=== PATIENT | male | born 1990 | race Caucasian/White ===

== ENCOUNTER 2017-06-29 22:34 | Emergency (ER) | payer BC, OTHER ==
[~2017-06-29] VITALS: Ht 177.8 cm; Wt 79.8 kg
[~2017-06-29 22:34] MED LIST: ZYRUNK
[2017-06-29 22:39] VITALS: TEMP 36.5; Ht 177.8 cm; Wt 79.8 kg
[2017-06-29] MEDS ORDERED: PARO10TA PO (22:59)
[2017-06-29] MEDS ORDERED: LEVO-371 PO (22:59)
[2017-06-29] MEDS ORDERED: RANITIDINE HCL 50 MG/100 ML D5W IV STA (23:16)
[2017-06-29] MEDS ORDERED: ALUMINUM/MAGNESIUM SUSP 30 ML UDC PO STA (23:16)
[2017-06-29] MEDS ORDERED: LIDOCAINE HCL 2% VISC SOLN 20 ML UDC PO STA (23:16)
[2017-06-29 23:48] LABS: HEMATOCRIT 41.9 % (42-52); MEAN CELL VOLUME 84.8 fL (80-100); MEAN CORPUSCULAR HEMOGLOBIN 29.8 pg (25-34); MEAN CORPUSCULAR HGB CONC 35.1 g/dl (32-36); MEAN PLATELET VOLUME 9.8 fL (7.4-10.4); PLATELET COUNT 232 K/uL (130-400); RED BLOOD COUNT 4.94 M/uL (4.7-6.1); WHITE BLOOD COUNT 9.37 K/uL (4.8-10.8)
[2017-06-30 00:05] LABS: ALT/SGPT 26 U/L (12-78); BLOOD UREA NITROGEN 18 mg/dl (7-18); BUN/CREATININE RATIO 22.1 (10-20); CALCIUM 9.3 mg/dl (8.5-10.1); CARBON DIOXIDE 27 mmol/L (21-32); CHLORIDE 106 mmol/L (98-107); CREATININE 0.81 mg/dl (0.60-1.40); GLUCOSE 107 mg/dl (70-99); POTASSIUM 3.6 mmol/L (3.5-5.1); SODIUM 138 mmol/L (136-145)
[2017-06-30 00:10] LABS: ALKALINE PHOSPHATASE 62 U/L (45-117); AST/SGOT 15 U/L (15-37)
[2017-06-30] MEDS ORDERED: ALUMINUM/MAGNESIUM SUSP 30 ML UDC PO STA (00:42)
[2017-06-30] MEDS ORDERED: PANTOprazole SOD 40 MG TAB PO STA (00:42)
[2017-06-30] MEDS ORDERED: LIDOCAINE HCL 2% VISC SOLN 20 ML UDC PO STA (00:42)
[2017-06-30] MEDS ORDERED: RANI150T3 PO (01:04)
--- NOTE | 2017-06-30 01:22 | EMERGENCY ROOM VISIT NOTE ---
History Report prepared by Lucille: Tacho Ruiz Under the Supervision of: Dr. Jayne Diallo D.O. First contact with patient: 23:06 Chief Complaint: GI ASSESSMENT Stated Complaint: HEART BURN,ACID REFLUX History of Present Illness The patient is a 27 year old male who presents to the Emergency Room with complaints of constant heart burn-like chest pain beginning 1.5 hours ago. He has a history of GERD and states that his current symptoms feel like typical heart burn, only more severe. He states that the last thing he ate today was pineapple. The patient took Tums and Mylanta for his symptoms, but nothing has improved his pain. He also complains of nausea, abdominal pain and sore throat. He denies any vomiting, or cough. The patient was previously on medication for his GERD, but has been off of it for the past several months. He notes that he had some alcohol yesterday, and does not drink regularly. He has no family history of aortic aneurysm or aortic dissection. Source of History: patient Onset: 1.5 hours ago Position: chest Quality: other (heart burn-like pain) Timing: constant Modifying Factors (Relieving): other (none) Associated Symptoms: + sorethroat, + nausea, + abdominal pain, No cough, No vomiting Review of Systems See HPI for pertinent positives & negatives. A total of 10 systems reviewed and were otherwise negative. Past Medical & Surgical Medical Problems: (1) Asthma (2) GERD (gastroesophageal reflux disease) (3) IBS (irritable bowel syndrome) Family History No pertinent family history stated. Social History Smoking Status: Never Smoker Marital Status: Occupation Status: student Current/Historical Medications Scheduled Levocetirizine Dihydrochloride (Xyzal), 5 MG PO DAILY Paroxetine Hcl (Paxil), 10 MG PO DAILY Ranitidine Hcl (Zantac), 150 MG PO BID Allergies Coded Allergies: No Known Allergies (Unverified , 06/29/17) Physical Exam Vital Signs Date Time Temp Pulse Resp B/P (MAP) Pulse Ox O2 Delivery O2 Flow Rate FiO2 06/30/17 01:23 65 18 109/77 97 06/30/17 00:39 67 18 115/69 97 Room Air 06/29/17 22:39 36.5 81 18 149/85 100 Room Air Physical Exam HEENT: Head - normocephalic and atraumatic Pupils are equal, round, and reactive to light. Extraocular eye muscles are intact, and sclera are anicteric. Nose - moist nasal mucosa without discharge. Mouth - moist buccal mucosa. Oropharynx is nonerythematous and there is no tonsillar exudate or edema noted. Neck: Supple; no JVD, nuchal rigidity, cervical lymphadenopathy. Heart: Regular rate and rhythm. There is a normal S1 and S2 with no murmurs, clicks, or gallops appreciated. Lungs: Clear to auscultation bilaterally with no wheezes, rales, or rhonchi. Chest: Some reproducible discomfort in the left anterior chest wall. Abdomen: Soft, completely nontender, nondistended, with good bowel sounds. There are no palpable pulsatile masses or hepatosplenomegaly. There is no guarding, rigidity, or rebound noted. Extremities: No evidence of cyanosis, clubbing, or edema. There are easily palpable peripheral pulses. Skin: warm and dry with good turgor and no rashes. Medical Decision & Procedures Laboratory Results 06/29/17 23:30 06/29/17 23:30 Test 06/29/17 23:30 Red Blood Count 4.94 M/uL (4.7-6.1) Mean Corpuscular Volume 84.8 fL (80-100) Mean Corpuscular Hemoglobin 29.8 pg (25-34) Mean Corpuscular Hemoglobin Concent 35.1 g/dl (32-36) RDW Standard Deviation 39.5 fL (36.4-46.3) RDW Coefficient of Variation 12.8 % (11.5-14.5) Mean Platelet Volume 9.8 fL (7.4-10.4) Anion Gap 5.0 mmol/L (3-11) Est Creatinine Clear Calc Drug Dose 140.2 ml/min Estimated GFR () 140.2 Estimated GFR (Non- 120.9 BUN/Creatinine Ratio 22.1 (10-20) Calcium Level 9.3 mg/dl (8.5-10.1) Total Bilirubin 0.2 mg/dl (0.2-1) Direct Bilirubin 0.1 mg/dl (0-0.2) Aspartate Amino Transf (AST/SGOT) 15 U/L (15-37) Alanine Aminotransferase (ALT/SGPT) 26 U/L (12-78) Alkaline Phosphatase 62 U/L (45-117) Troponin I < 0.015 ng/ml (0-0.045) Total Protein 7.6 gm/dl (6.4-8.2) Albumin 3.9 gm/dl (3.4-5.0) Lipase 129 U/L (73-393) Laboratory results per my review. Medications Administered Medications (Trade) Dose Ordered Sig/Laury Route Start Time Stop Time Status Last Admin Dose Admin Lidocaine HCl (Viscous Lidocaine 2% Soln) 10 ml NOW STAT PO 06/29/17 23:16 06/29/17 23:19 DC 06/29/17 23:22 10 ML Al Hydroxide/Mg Hydroxide (Maalox Susp) 30 ml NOW STAT PO 06/29/17 23:16 06/29/17 23:19 DC 06/29/17 23:22 30 ML Ranitidine HCl (zANTac IV) 50 mg NOW STAT IV 06/29/17 23:16 06/29/17 23:19 DC 06/29/17 23:32 50 MG Pantoprazole Sodium (Protonix Tab) 40 mg NOW STAT PO 06/30/17 00:42 06/30/17 00:43 DC 06/30/17 00:59 40 MG Lidocaine HCl (Viscous Lidocaine 2% Soln) 10 ml NOW STAT PO 06/30/17 00:42 06/30/17 00:43 DC 06/30/17 01:00 10 ML Al Hydroxide/Mg Hydroxide (Maalox Susp) 30 ml NOW STAT PO 06/30/17 00:42 06/30/17 00:43 DC 06/30/17 01:00 30 ML Procedure Medications ordered: Zantac IV, Maalox Susp PO, Viscous Lidocaine 2% Soln PO, Protonix PO. ECG Indication: chest pain Rate (beats per minute): 64 Rhythm: normal sinus Findings: no acute ischemic change, no ectopy ED Course 2310: Past medical records reviewed. The patient was evaluated in room A2. A complete history and physical exam was performed. An IV lock was initiated and labs are drones above. A twelve-lead EKG was obtained as described above. 2316: Ordered Zantac 50 mg IV, Maalox Susp 30 mL PO, Viscous Lidocaine 2% Soln 10 mL PO. 0012: I checked in on the patient. He has had almost complete relief of his symptoms, though he is beginning to feel a slight burning in the back of his throat. 0040: I reassessed the patient. He is still experiencing some burning in his throat. 0042: Ordered Maalox Susp 30 mL PO, Viscous Lidocaine 2% Soln 10 mL PO, Protonix Tab 40 mg PO. 0115: Upon reevaluation, the patient is resting comfortably. I discussed findings and results with him. He verbalized agreement of the treatment plan. He is pain-free at the time of discharge. The patient was discharged home. Medical Decision The patient is a 27 year old male who presents to the ED with heart burn-like chest pain. Differential diagnosis includes but is not limited to; GERD, pancreatitis, aortic dissection, cardiac ischemia and pleurisy. Laboratory studies: No leukocytosis. Stable H&H. Normal renal function. Glucose 107. Lipase 129. Normal LFTs. Negative troponin. This is a 19-year-old male patient presents to the emergency department with heartburn. He had a normal-appearing EKG. Cardiac enzymes were negative. The patient's symptoms were initially relieved with a GI cocktail. He went on to receive IV Zantac and oral Protonix. I will start the patient on Zantac twice a day and have encouraged him to follow-up with his PCP. The patient was told to return to the emergency department if symptoms worsened. I encouraged him to avoid caffeine, tobacco, alcohol, chocolate and spearmint. Medication Reconcilliation Current Medication List: was personally reviewed by me Blood Pressure Screening Patient's blood pressure: Elevated blood pressure Blood pressure disposition: Elevated BP felt to be situational Impression Primary Impression: GERD (gastroesophageal reflux disease) Scribe Attestation The scribe's documentation has been prepared under my direction and personally reviewed by me in its entirety. I confirm that the note above accurately reflects all work, treatment, procedures, and medical decision making performed by me. Departure Information Dispostion Home / Self-Care Prescriptions Ranitidine Hcl (ZANTAC) 150 Mg Tab 150 MG PO BID, #30 TAB Prov: Jayne Diallo D.O. 06/30/17 Referrals Sana Lofton DO (PCP) Forms HOME CARE DOCUMENTATION FORM, IMPORTANT VISIT INFORMATION Patient Instructions GERD, GERD Lifestyle Changes, GERD Meds, My [facility] Additional Instructions Rest. Avoid caffeine, chocolate, spearamint, tobacco, and alcohol Zantac - 150mg twice a day. Follow up with Dr. Lofton if not improving. Return to the ER if worsening Problem Qualifiers Primary Impression: GERD (gastroesophageal reflux disease) Esophagitis presence: with esophagitis Qualified Codes: K21.0 - Gastro- esophageal reflux disease with esophagitis
[2017-06-30 01:23] VITALS: BP 109/77; PULSE 65; O2SAT 97
== END 2017-06-30 01:23 | disposition home or self-care (01) ==
LOC: C.EDB 22:37 → C.EDA 06-30 01:23
DX: K21.0 Gastro-esophageal reflux disease with esophagitis (principal); J45.909 Unspecified asthma, uncomplicated; K58.9 Irritable bowel syndrome, unspecified; Z79.899 Other long term (current) drug therapy